=== PATIENT | male | born 1985 | race Caucasian/White ===

== ENCOUNTER 2021-11-17 14:22 | Emergency (ER) | payer SELFPAY ==
[2021-11-17] MEDS ORDERED: Iopamidol 755 MG/ML 500 ML Multipack Bottle IVPUSH STA (15:44)
[2021-11-17 15:55] LABS: BLOOD UREA NITROGEN,BUN 13 mg/dL (7.0-18.0); CARBON DIOXIDE,CO2 23.4 mmol/L (21.0-32.0); CHLORIDE,CL 101 mmol/L (98-107); GLUCOSE RANDOM 114 mg/dL (74-106); SODIUM,NA 134 mmol/L (136-148)
[2021-11-17] MEDS ORDERED: Metoclopramide 10 MG/2 ML SDV IVPUSH ONE (16:10)
[2021-11-17] MEDS ORDERED: diphenhydrAMINE 50 MG/ML SDV IVPUSH ONE (16:10)
[2021-11-17] MEDS ORDERED: Ketorolac 30 MG/ML SDV IVPUSH ONE (16:10)
[2021-11-17] MEDS ORDERED: Aspirin 81 MG Tab.Chew PO ONE (17:50)
== END 2021-11-17 19:03 | disposition home or self-care (01) ==
LOC: MW.ED 14:22
DX: G45.9 Transient cerebral ischemic attack, unspecified (principal); Z20.822 Contact with and (suspected) exposure to COVID-19
CPT/HCPCS: 36415; 70450; 70496; 70498; 80053; 80305; 80307; 82947; 83605; 84443; 85025; 85610; 85730; 87635; 93005; 96374; 96375; 99285; A9270; J1200; J1885; J2765; Q9967; U0002